=== PATIENT | female | born 1990 | race Caucasian/White ===

== ENCOUNTER 2020-01-20 22:40 | Emergency (ER) | payer OTHER, MEDICAID ==
[~2020-01-20] VITALS: Ht 162.6 cm; Wt 86.2 kg
[2020-01-20] MEDS ORDERED: XANAX 0.5 MG0.5 M1 PO (22:49)
[2020-01-20] MEDS ORDERED: ADDERALL 10 MG10 MG PO (22:49)
[2020-01-20 23:14] LABS: ABSOLUTE BASOPHILS 0.1 thou/uL (0.0-0.2); ABSOLUTE EOSINOPHILS 0.2 thou/uL (0.0-0.7); ABSOLUTE LYMPHOCYTES 2.9 thou/uL (0.8-5.3); ABSOLUTE MONOCYTES 0.5 thou/uL (0.0-1.2); ABSOLUTE NEUTROPHILS 3.8 thou/uL (1.6-8.1); BASOPHILS 0.9 %; EOSINOPHILS 2.7 %; HEMATOCRIT 38.8 % (37.0-47.0); HEMOGLOBIN 13.4 gm/dL (12.0-15.0); LYMPHOCYTES 38.7 %; MCH 29.7 pg (26.0-34.0); MCHC 34.5 g/dL (28.0-37.0); MONOCYTES 6.7 %; MPV 7.9 fl. (7.2-11.1); NUCLEATED RBCS 0 /100WBC; PLATELET COUNT* 243 thou/uL (150-400); RBC 4.51 mil/uL (4.20-5.00); RDW-CV 12.6 % (10.5-14.5); WBC 7.4 thou/uL (4.0-11.0)
[2020-01-20 23:19] LABS: CALCIUM 8.6 mg/dL (8.5-10.1); CREATININE 0.8 mg/dL (0.6-1.3)
[2020-01-20 23:23] LABS: PROTIME 10.7 Seconds (9.20-11.50)
[2020-01-20 23:30] LABS: ALBUMIN 3.5 g/dL (3.4-5.0); TOTAL BILIRUBIN 0.3 mg/dL (<0.1-1.0)
[2020-01-21 00:04] LABS: URINE BILIRUBIN NEGATIVE (Negative); URINE BLOOD NEGATIVE (Negative); URINE CLARITY CLEAR; URINE COLOR YELLOW; URINE GLUCOSE-RANDOM NEGATIVE (Negative); URINE KETONES NEGATIVE (Negative); URINE LEUKOCYTES-REFLEX NEGATIVE (Negative); URINE NITRITE-REFLEX NEGATIVE (Negative); URINE PROTEIN NEGATIVE (Negative); URINE SPECIFIC GRAVITY 1.015 (1.005-1.030); URINE UROBILINOGEN 0.2 E.U./dl (0.2-1.0)
[2020-01-21 01:18] VITALS: BP 135/94
--- NOTE | 2020-01-21 12:22 | EKG ---
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
== END 2020-01-21 01:19 | disposition home or self-care (01) ==
LOC: M.ERS 22:40
PROVIDERS: Emergency Medicine
DX: R07.81 Pleurodynia (principal); Z88.8 Allergy status to other drugs, medicaments and biological substances; Z90.49 Acquired absence of other specified parts of digestive tract

== ENCOUNTER 2021-04-11 08:43 | Emergency (ER) | payer OTHER, MEDICAID ==
[~2021-04-11] VITALS: Ht 162.6 cm; Wt 90.7 kg
[~2021-04-11 08:43] MED LIST: ADDERALL 10 MG10 MG PO; XANAX 0.5 MG0.5 M1 PO
[2021-04-11 08:50] VITALS: BP 125/85
[2021-04-11] MEDS ORDERED: ZESTRIL20 MG PO (09:06)
[2021-04-11] MEDS ORDERED: MOBIC7.5 MG PO (09:15)
== END 2021-04-11 09:53 | disposition home or self-care (01) ==
LOC: M.ERS 08:43
DX: M25.511 Pain in right shoulder (principal); I10 Essential (primary) hypertension; Z98.51 Tubal ligation status; Z90.49 Acquired absence of other specified parts of digestive tract; Z88.8 Allergy status to other drugs, medicaments and biological substances

== ENCOUNTER 2021-07-16 13:17 | Emergency (ER) | payer OTHER, MEDICAID ==
[~2021-07-16] VITALS: Ht 162.6 cm; Wt 90.7 kg
[~2021-07-16 13:17] MED LIST changes: +MOBIC7.5 MG PO; +ZESTRIL20 MG PO
[2021-07-16] MEDS ORDERED: FLEXERIL PO (16:12)
[2021-07-16 16:28] VITALS: BP 138/80
== END 2021-07-16 16:30 | disposition home or self-care (01) ==
LOC: M.ERS 13:17
DX: S16.1XXA Strain of muscle, fascia and tendon at neck level, initial encounter (principal); I10 Essential (primary) hypertension; Z90.49 Acquired absence of other specified parts of digestive tract; Z98.51 Tubal ligation status; Z79.899 Other long term (current) drug therapy; Z91.09 Other allergy status, other than to drugs and biological substances; V89.2XXA Person injured in unspecified motor-vehicle accident, traffic, initial encounter; Y93.89 Activity, other specified; Y92.89 Other specified places as the place of occurrence of the external cause; Y99.8 Other external cause status

== ENCOUNTER 2021-09-08 16:30 | Emergency (ER) | payer OTHER, MEDICAID ==
[~2021-09-08] VITALS: Ht 162.6 cm; Wt 90.7 kg
[~2021-09-08 16:30] MED LIST changes: +FLEXERIL PO
[2021-09-08 17:07] LABS: URINE BLOOD NEGATIVE (Negative); URINE CLARITY CLEAR; URINE COLOR YELLOW; URINE GLUCOSE-RANDOM NEGATIVE (Negative); URINE KETONES 1+ (Negative); URINE LEUKOCYTES NEGATIVE (Negative); URINE NITRITE NEGATIVE (Negative); URINE PROTEIN TRACE (Negative); URINE SPECIFIC GRAVITY >= 1.030 (1.005-1.030); URINE UROBILINOGEN 0.2 E.U./dl (0.2-1.0)
[2021-09-08 17:11] LABS: URINE BILIRUBIN 2+ (Negative)
[2021-09-08 17:12] LABS: ICTOTEST (BILI CONFIRMATORY) Negative (Negative)
[2021-09-08 17:13] LABS: HEMATOCRIT 45.3 % (37.0-47.0); HEMOGLOBIN 15.5 gm/dL (12.0-15.0); MCH 29.7 pg (26.0-34.0); MCHC 34.2 g/dL (28.0-37.0); MCV 86.9 fL (80.0-100.0); MPV 7.9 fl. (7.2-11.1); NUCLEATED RBCS 0 /100WBC; PLATELET COUNT* 207 thou/uL (150-400); RBC 5.22 mil/uL (4.20-5.00); RDW-CV 12.5 % (10.5-14.5); WBC 7.4 thou/uL (4.0-11.0)
[2021-09-08 17:21] LABS: CALCIUM 9.5 mg/dL (8.5-10.1); CREATININE 0.7 mg/dL (0.6-1.3); POTASSIUM 3.6 mmol/L (3.5-5.1)
[2021-09-08 17:26] LABS: ALBUMIN 4.3 g/dL (3.4-5.0); TOTAL BILIRUBIN 0.8 mg/dL (<0.1-1.0)
[2021-09-08 18:02] LABS: ABSOLUTE LYMPHOCYTES 0.3 thou/uL (0.8-5.3); ABSOLUTE MONOCYTES 0.1 thou/uL (0.0-1.2)
[2021-09-08 18:03] LABS: PLATELET ESTIMATE ADEQUATE
[2021-09-08] MEDS ORDERED: ZOFRAN ODT4 MG PO (18:29)
[2021-09-08 18:55] VITALS: BP 130/92
== END 2021-09-08 18:56 | disposition home or self-care (01) ==
LOC: M.ERS 16:30
PROVIDERS: Physician Assistant
DX: R11.2 Nausea with vomiting, unspecified (principal); Z20.822 Contact with and (suspected) exposure to COVID-19; I10 Essential (primary) hypertension; Z98.51 Tubal ligation status; Z90.49 Acquired absence of other specified parts of digestive tract; Z79.899 Other long term (current) drug therapy